=== PATIENT | male | born 1965 | race African-American/Black ===

== ENCOUNTER 2017-12-13 09:03 | Emergency (ER) | payer MEDICARE, MEDICAID ==
[~2017-12-13] VITALS: Ht 188 cm; Wt 74.5 kg
[2017-12-13 09:06] VITALS: BP 181/98; PULSE 93; RESP 22; TEMP 96.8; O2SAT 96
[2017-12-13] MEDS ORDERED: LISI-515 PO (10:01)
[2017-12-13] MEDS ORDERED: KEPP10002 PO (10:01)
[2017-12-13] MEDS ORDERED: DAPA1TAB3 PO (10:01)
[2017-12-13] MEDS ORDERED: ASPI-516 CHEW (10:01)
[2017-12-13] MEDS ORDERED: HYDR8TAB PO (10:02)
[2017-12-13] MEDS ORDERED: NOVOLOGP2 SQ (10:02)
[2017-12-13] MEDS ORDERED: ATOR80TA45 PO (10:02)
[2017-12-13] MEDS ORDERED: LEVEMIR SQ (10:02)
[2017-12-13] MEDS ORDERED: LEVO25TA4 PO (10:02)
[2017-12-13] MEDS ORDERED: RANI150T PO (10:02)
[2017-12-13] MEDS ORDERED: LYRI75CA PO (10:02)
[2017-12-13 10:14] LABS: AUTOMATED NEUTROPHIL # 7.7 TH/MM3 (1.8-7.7); BASOPHIL # 0.1 TH/MM3 (0-0.2); BASOPHIL % 0.6 % (0.0-2.0); EOSINOPHIL % 0.5 % (0.0-4.0); HEMATOCRIT 40.7 % (39.0-51.0); HEMOGLOBIN 13.4 GM/DL (13.0-17.0); LYMPH % 12.5 % (9.0-44.0); LYMPHOCYTE # 1.2 TH/MM3 (1.0-4.8); MEAN CELL VOLUME 88.8 FL (80.0-100.0); MEAN CORPUSCULAR HEMOGLOBIN 29.3 PG (27.0-34.0); MEAN PLATELET VOLUME 9.4 FL (7.0-11.0); MONO % 6.6 % (0.0-8.0); MONOCYTE # 0.6 TH/MM3 (0-0.9); NEUT % 79.8 % (16.0-70.0); PLATELET COUNT 161 TH/MM3 (150-450); RED BLOOD COUNT 4.58 MIL/MM3 (4.50-5.90); RED CELL DISTRIBUTION WIDTH 14.7 % (11.6-17.2); WHITE BLOOD COUNT 9.6 TH/MM3 (4.0-11.0)
--- NOTE | 2017-12-13 10:40 | PD ---
HPI Chief Complaint: GI Complaint Time Seen by Provider: 09:16 Travel History International Travel<30 days: No Contact w/Intl Traveler<30days: No Traveled to known affect area: No History of Present Illness HPI 52yo M with PMH of CVA, DM here with c/o not feeling well today. Said he has been vomiting and has nausea. Denies any fever, chest pain, sob, abdominal pain, new focal weakness or numbness. Pt has had 2 CVA prior and needs assistance with ambulation at baseline. PFSH Past Medical History Cerebrovascular Accident: Yes Diabetes: Yes Social History Tobacco Use: No Allergies-Medications (Allergen,Severity, Reaction): Coded Allergies: Penicillins (Verified Allergy, Unknown, 12/13/17) Reported Meds & Prescriptions Reported Meds & Active Scripts Active Reported Hydromorphone (Hydromorphone HCl) 8 Mg Tab 8 Mg PO Q6H PRN Lyrica (Pregabalin) 75 Mg Cap 75 Mg PO BID PRN Atorvastatin (Atorvastatin Calcium) 80 Mg Tab 80 Mg PO HS Novolog Inj (Insulin Aspart) 1,000 Unit/10 Ml Vial 6 Units SQ TIDAC Levemir Inj (Insulin Detemir) 1,000 unit/ 10 ML Vial 15 Units SQ HS Do not mix with any other Insulin. Ranitidine (Ranitidine HCl) 150 Mg Tab 150 Mg PO BID Levothyroxine (Levothyroxine Sodium) 25 Mcg Tab Unknown Dose PO DAILY Aspirin 81 Mg Chew 81 Mg CHEW DAILY Lisinopril 20 Mg Tab Unknown Dose PO DAILY Farxiga (Dapagliflozin) 10 Mg Tab 10 Mg PO BID Keppra (Levetiracetam) 1,000 Mg Tab 1,000 Mg PO BID Review of Systems Except as stated in HPI: all other systems reviewed are Neg Physical Exam Narrative GENERAL: 52yo M in mild distress. SKIN: Focused skin assessment warm/dry. HEAD: Atraumatic. Normocephalic. EYES: Pupils equal and round. No scleral icterus. No injection or drainage. ENT: No nasal bleeding or discharge. Mucous membranes pink and moist. NECK: Trachea midline. No JVD. CARDIOVASCULAR: Regular rate and rhythm. No murmur appreciated. RESPIRATORY: No accessory muscle use. Clear to auscultation. Breath sounds equal bilaterally. GASTROINTESTINAL: Abdomen soft, non-tender, nondistended. No rebound tenderness or guarding. MUSCULOSKELETAL: No obvious deformities. No clubbing. No cyanosis. No edema. NEUROLOGICAL: Awake and alert. No obvious cranial nerve deficits. Motor grossly within normal limits in all extremities. Sensation equal. Normal speech. PSYCHIATRIC: Appropriate mood and affect; insight and judgment normal. Data Data Last Documented VS Vital Signs Date Time Temp Pulse Resp B/P (MAP) Pulse Ox O2 Delivery O2 Flow Rate FiO2 12/13/17 13:15 90 18 175/80 (111) 98 Room Air 12/13/17 09:06 96.8 Orders Orders Complete Blood Count With Diff (12/13/17 09:16) Basic Metabolic Panel (Bmp) (12/13/17 09:16) Electrocardiogram (12/13/17 ) Blood Gas Venous (Vbg) (12/13/17 09:16) Lipase (12/13/17 09:16) Magnesium (Mg) (12/13/17 09:16) Beta Hydroxybutyrate (Acetone) (12/13/17 09:16) Urinalysis - C+S If Indicated (12/13/17 09:16) Ondansetron Odt (Zofran Odt) (12/13/17 11:00) Sodium Chlor 0.9% 1000 Ml Inj (Ns 1000 M (12/13/17 11:30) Ed Discharge Order (12/13/17 15:37) Labs Laboratory Tests Test 12/13/17 10:00 12/13/17 10:05 12/13/17 12:50 Blood Gas Puncture Site IV Blood Gas Patient Temperature 98.6 Venous Blood pH 7.36 Venous Blood Partial Pressure CO2 56 mmHg Venous Blood Partial Pressure O2 42 mmHg Venous Blood HCO3 30 mmol/L Venous Blood Oxygen Saturation 71 % Venous Blood Oxygen Content 13.6 Vol % Venous Blood Base Excess 5.2 mmol/L White Blood Count 9.6 TH/MM3 Red Blood Count 4.58 MIL/MM3 Hemoglobin 13.4 GM/DL Hematocrit 40.7 % Mean Corpuscular Volume 88.8 FL Mean Corpuscular Hemoglobin 29.3 PG Mean Corpuscular Hemoglobin Concent 33.0 % Red Cell Distribution Width 14.7 % Platelet Count 161 TH/MM3 Mean Platelet Volume 9.4 FL Neutrophils (%) (Auto) 79.8 % Lymphocytes (%) (Auto) 12.5 % Monocytes (%) (Auto) 6.6 % Eosinophils (%) (Auto) 0.5 % Basophils (%) (Auto) 0.6 % Neutrophils # (Auto) 7.7 TH/MM3 Lymphocytes # (Auto) 1.2 TH/MM3 Monocytes # (Auto) 0.6 TH/MM3 Eosinophils # (Auto) 0.0 TH/MM3 Basophils # (Auto) 0.1 TH/MM3 CBC Comment DIFF FINAL Differential Comment Blood Urea Nitrogen 15 MG/DL Creatinine 0.85 MG/DL Random Glucose 261 MG/DL Calcium Level 8.8 MG/DL Magnesium Level 2.2 MG/DL Sodium Level 142 MEQ/L Potassium Level 4.7 MEQ/L Chloride Level 103 MEQ/L Carbon Dioxide Level 28.2 MEQ/L Anion Gap 11 MEQ/L Estimat Glomerular Filtration Rate 114 ML/MIN Lipase 51 U/L B-Hydroxybutyrate 2.06 MMOL/L Urine Color YELLOW Urine Turbidity CLEAR Urine pH 6.0 Urine Specific [place] 1.036 Urine Protein 100 mg/dL Urine Glucose (UA) 1000 mg/dL Urine Ketones 40 mg/dL Urine Occult Blood NEG Urine Nitrite NEG Urine Bilirubin NEG Urine Urobilinogen LESS THAN 2.0 MG/DL Urine Leukocyte Esterase NEG Urine RBC 2 /hpf Urine WBC LESS THAN 1 /hpf Microscopic Urinalysis Comment CULT NOT INDICATED MDM Medical Decision Making Medical Screen Exam Complete: Yes Emergency Medical Condition: Yes Interpretation(s) EKG: NSR 88bpm. LAD. No ST segment elevation or depression. T wave flattening in III. Differential Diagnosis Dehydration vs. pancreatitis vs. electrolyte abnormality vs. DKA Narrative Course 52yo M with DM here with nausea, vomiting and general feeling of unwell today. No focal neurologic deficits. Labs reviewed, no leukocytosis. H/H normal. Glucose elevated at 261. Lipase low. Normal anion gap. CO2 normal. b- hydroxybutyrate mildly elevated at 2.06. Creatinine normal. Pt given zofran and reevaluated at bedside. Pt is no longer nauseous. NS IVF given. Pt reevaluated at bedside and feeling much better. No more nausea and wants to go home. Return precautions given. Diagnosis Primary Impression: Nausea Patient Instructions: General Instructions Departure Forms: Tests/Procedures Additional Instructions: Please follow up with your primary care physician in 2-3 days. Return precautions given. Med/Other Pt SpecificInfo: No Change to Meds Disposition: 01 DISCHARGE HOME Condition: Stable Hernandez,Savanah DO Dec 13, 2017 10:40
[2017-12-13 10:54] LABS: BICARBONATE 28.2 MEQ/L (21.0-32.0); CALCIUM 8.8 MG/DL (8.5-10.1); CREATININE 0.85 MG/DL (0.60-1.30); MAGNESIUM 2.2 MG/DL (1.5-2.5)
[2017-12-13] MEDS ORDERED: ONDANSETRON ODT 4 MG TAB PO ONE (11:00)
[2017-12-13] MEDS ORDERED: SODIUM CHLOR 0.9% 1000 ML INJ 1,000 ML IV ONE (11:30)
[2017-12-13 13:08] LABS: BILIRUBIN, URINE NEG (NEG); BLOOD, URINE NEG (NEG); GLUCOSE,URINE 1000 mg/dL (NEG); KETONE, URINE 40 mg/dL (NEG); NITRITE,URINE NEG (NEG); URINE COLOR YELLOW (YELLW/STRAW); URINE LEUKOCYTE ESTERASE NEG (NEG)
[2017-12-13 13:15] VITALS: BP 175/80; PULSE 90; RESP 18; O2SAT 98
--- NOTE | 2017-12-14 17:53 | EKG ---
Date Performed: 12/13/2017 Time Performed: 10:35:53 PTAGE: 52 years EKG: Sinus rhythm BORDERLINE ECG NO PREVIOUS TRACING DOCTOR: Diallo Nix Interpretating Date/Time 12/14/2017 17:52:02
== END 2017-12-13 15:58 | disposition home or self-care (01) ==
LOC: NEPC 09:03
DX: R11.2 Nausea with vomiting, unspecified (principal); E11.9 Type 2 diabetes mellitus without complications; Z79.4 Long term (current) use of insulin
CPT/HCPCS: 80048; 81001; 82010; 82805; 83690; 83735; 85025; 93005; 96360; 99284; J7030